=== PATIENT | female | born 1975 | race Caucasian/White ===

== ENCOUNTER → 2016-09-23 | Outpatient (CLI) | payer MEDICAID ==
--- NOTE | 2016-09-27 08:09 | MM ---
Reason for exam: screening (asymptomatic). Last mammogram was performed 1 year and 2 months ago. History: Family history of breast cancer in maternal aunt. Physical Findings: A clinical breast exam by your physician is recommended on an annual basis and results should be correlated with mammographic findings. MG 3D Screening Mammo W/Cad Bilateral CC and MLO view(s) were taken. Prior study comparison: July 17, 2015, bilateral MG 3d screening mammo w/cad. July 10, 2014, bilateral MG screening mammo w CAD. The breast tissue is heterogeneously dense. This may lower the sensitivity of mammography. No significant changes when compared with prior studies. ASSESSMENT: Negative, BI-RAD 1 RECOMMENDATION: Routine screening mammogram of both breasts in 1 year.
== END | disposition home or self-care (01) ==
LOC: RADMAMWWP 08:13
PROVIDERS: ATTEND Obstetrics & Gynecology
DX: Z12.31 Encounter for screening mammogram for malignant neoplasm of breast (principal)
CPT/HCPCS: 77063; G0202

== ENCOUNTER 2016-10-24 06:31 | Day surgery (SDC) | payer MEDICAID ==
--- NOTE | 2016-10-19 18:45 | HP ---
DATE OF ADMISSION: 10/24/2016. HISTORY: This is a 41-year-old 3, para 3 woman with a long-standing history of menorrhagia and dysmenorrhea, she is scheduled to undergo diagnostic hysteroscopy with NovaSure endometrial ablation. She has had a benign endometrial biopsy and uterus measures 9.5 x 4.2 x 5.3 cm on ultrasound. She has a normal endometrial stripe and bilateral adnexa. ALLERGIES: PENICILLIN causes hives. MEDICATIONS: 1. Synthroid 150 mcg. 2. Valtrex 500 mg p.r.n. 3. Ibuprofen 600 mg p.r.n. 4. Gabapentin 300 mg q.h.s. PAST MEDICAL HISTORY: Hypothyroidism, irritable bowel syndrome, Raynaud's syndrome, restless leg syndrome, menorrhagia. PAST SURGICAL HISTORY: Cholecystectomy, myringotomy tubes, tubal ligation. 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 Her menstrual history is as above. She has had a tubal ligation for contraception. No history of abnormal Pap smears. SOCIAL HISTORY: She is . Negative for tobacco, alcohol and drug use. FAMILY HISTORY: Noncontributory. REVIEW OF SYSTEMS: A twelve-point review of systems is negative except for that described above. PHYSICAL EXAM: Height 5 feet 5-1/2 inches. Weight 168 pounds, pulse 63, blood pressure 124/72. In general, this is a pleasant female in no apparent distress. HEENT exam is unremarkable. The lungs are clear to auscultation bilaterally and the heart is a regular rate and rhythm. The abdomen is slim, soft and nontender. There is no rebound, no guarding and no flank pain. On pelvic examination, she has normal female external genitalia without lesions or irritation. On bimanual examination, the uterus is small, freely mobile and in the midline. There are no adnexal abnormalities appreciated. ASSESSMENT: This is a 41-year-old 3, para 3 woman with menorrhagia, and dysmenorrhea. She desires surgical management in the form of NovaSure endometrial ablation. She is scheduled to undergo diagnostic hysteroscopy and ablation on 10/24/2016. This procedure, anticipated hospital course, recovery time and risks are reviewed with the patient in the office setting. Risks include but are not limited to bleeding, transfusion, infection, uterine perforation with possible injury to intrapelvic or abdominal structures, recurrent bleeding, anesthesia complications, DVT, PE, and/or . The patient understands these risks and agrees to proceed.
[2016-10-20 18:10] VITALS: BMI 26.6
[~2016-10-24 06:31] MED LIST: DEXAMETHASONE SOD PHOSPHATE 10 MG/ML 1 ML VIAL IV ONE; MIDAZOLAM 2 MG/2 ML VIAL IV PRN; ONDANSETRON 4 MG/2 ML VIAL IVP ONE; Pre Op ABX Message 1 EACH MISC MISCELLANE ONE; SCOPOLAMINE 1.5MG/72HR PATCH TRANSDERM ONE
[2016-10-24] MEDS: LIDOCAINE 1% 20 ML VIAL (10MG/ML) FOR IV START INTRADERMA ONE ×2 (07:03→08:56)
[2016-10-24] MEDS: LACTATED RINGERS 1,000 ML IV SCH ×2 (07:03→11:31)
[2016-10-24] MEDS ORDERED: LIDOCAINE 1%-EPI 1:100,000 20 ML VIAL SUBMUCOSAL ONE ×2 (07:18→08:05)
[2016-10-24] MEDS ORDERED: MIDAZOLAM 2 MG/2 ML VIAL ONE (07:30)
[2016-10-24] MEDS ORDERED: PROPOFOL 10 MG/ML 20 ML VIAL IV ONE (07:30)
[2016-10-24] MEDS ORDERED: KETOROLAC 30 MG/ML 1 ML VIAL ONE (07:30)
[2016-10-24] MEDS ORDERED: fentaNYL (PF) 50 MCG/ML 2 ML AMP ONE (07:30)
[2016-10-24] MEDS ORDERED: LIDOCAINE 1% INJ 10MG/ML (20 ML MDV) ONE (07:30)
[2016-10-24] MEDS ORDERED: LACTATED RINGERS 1,000 ML IV ONE (08:03)
--- NOTE | 2016-10-24 08:17 | P.OP ---
Date of Procedure: 10/24/16 Preoperative Diagnosis: Menorrhagia Postoperative Diagnosis: Menorrhagia Procedure(s) Performed: Diagnostic hysteroscopy and NovaSure endometrial ablation Anesthesia: MAC Surgeon: Mari White Estimated Blood Loss (ml): 3 IV fluids (ml): 1,000 Urine output (ml): 15 Pathology: none sent Condition: stable Disposition: PACU Operative Findings: Retroverted uterus with fluffy endometrium noted. No gross intracavitary lesions. Description of Procedure: After the patient was met in the preoperative holding area and all questions were answered, she was taken to the operating room where anesthetic was administered without incident. She was then positioned, prepped and draped in the dorsal lithotomy position. Exam under anesthetic was performed and uterus was noted to be retroverted. Single-sided speculum was placed in the vagina and the cervix was grasped anteriorly with a single-tooth tenaculum. Paracervical block with lidocaine plus epinephrine was placed. The uterus was sounded to 9 cm and was retroverted. The cervix was then sequentially dilated using Hegar dilators to allow for passage of the diagnostic hysteroscope. The hysteroscope was introduced and the above findings were noted. Hysteroscope was removed and the cervix was further dilated to allow for passage of the NovaSure ablation device. The ablation device was inserted for a cavity length of 5.5 cm and a width of 4.4 cm. Cavity assessment test was passed without difficulty. The device was enabled. The treatment cycle was 58 seconds at a power of 121 W. Following cessation of the treatment cycle the device was removed. The hysteroscope was reintroduced and complete desiccation of the endometrium was noted. All instruments were then removed from the uterus. The tenaculum was removed. The uterus was observed and no active bleeding was noted. Speculum was removed. The patient was awoken from anesthetic and transported to the recovery area in stable condition. All counts reported to me as correct.
[2016-10-24 08:22] VITALS: TEMP 98
[2016-10-24] MEDS: HYDROmorphone 1 MG/ML 1 ML SYRINGE IVP PRN ×2 (08:51→08:56)
[2016-10-24] MEDS ORDERED: FAMOTIDINE 20 MG/2 ML VIAL IV ONE (10:15)
[2016-10-24] MEDS ORDERED: ONDANSETRON 4 MG/2 ML VIAL IVP ONE (10:59)
[2016-10-24 12:19] VITALS: BP 112/71; PULSE 65; RESP 16
== END 2016-10-24 12:25 | disposition home or self-care (01) ==
LOC: OR 06:31
PROVIDERS: ATTEND Obstetrics & Gynecology
DX: N92.0 Excessive and frequent menstruation with regular cycle (principal); N94.6 Dysmenorrhea, unspecified; E03.9 Hypothyroidism, unspecified; I73.00 Raynaud's syndrome without gangrene; G25.81 Restless legs syndrome; Z79.899 Other long term (current) drug therapy; Z88.0 Allergy status to penicillin
CPT/HCPCS: 81025; 58563; J2250; J1100; J2405; J2001; J3010; J1885; J1170; J2704